=== PATIENT | male | born 1985 | race Two or more races ===

== ENCOUNTER 2024-12-16 21:43 | Emergency (ER) | payer BC ==
[2024-12-16 22:03] VITALS: BP 140/93; PULSE 63; RESP 16; TEMP 98.1; BMI 24.8
[2024-12-16 22:34] LABS: HEMATOCRIT 41.6 % (40.1-51.0); HEMOGLOBIN 14.4 g/dL (13.7-17.5); MCHC 34.6 g/dl (32.3-36.5); MEAN CELL VOLUME 87.9 fl (79.0-92.2); MEAN PLT VOLUME 10.1 fl (9.4-12.4); PLATELET COUNT 179 x10^3/uL (163-337); RDW 11.5 % (12.1-15.9)
[2024-12-16 22:56] LABS: ANION GAP 8 mmol/L (4-13); CALCIUM 9.3 mg/dl (8.5-10.1); CHLORIDE 105 mmol/L (98-107); CO2 23 mmol/L (21-32); CREATININE 0.9 mg/dl (0.6-1.3); GLUCOSE,RANDOM 110 mg/dl (74-106); SODIUM 136 mmol/L (136-145)
[2024-12-17 00:42] LABS: HCV DIAGNOSTIC IN-HOUSE W/RFLX NON-REACTIVE (NONREACTIVE)
[2024-12-17 00:43] LABS: HIV INTERPRETATION NEGATIVE (NEGATIVE)
== END 2024-12-16 22:45 | disposition home or self-care (01) ==
LOC: FER 21:43
DX: K59.00 Constipation, unspecified (principal); R10.13 Epigastric pain; R07.9 Chest pain, unspecified
CPT/HCPCS: 36415; 71046-TC-FY; 74019-TC-FY; 80048; 81003; 84153; 85027; 86803; 87389; 93005; 99285-25